=== PATIENT | male | born 1960 | race Caucasian/White ===

== ENCOUNTER 2017-11-05 08:44 | Emergency (ER) | payer OTHER ==
[~2017-11-05] VITALS: Ht 175.3 cm; Wt 67.0 kg
[~2017-11-05 08:44] MED LIST: METH750T2 PO
[2017-11-05 08:45] VITALS: BP 161/72; PULSE 104; RESP 16; TEMP 98.7; O2SAT 100
[2017-11-05] MEDS ORDERED: PENI500T PO (09:22)
--- NOTE | 2017-11-05 09:25 | PD ---
HPI Chief Complaint: Oral / Dental Pain or Problem Time Seen by Provider: 09:09 Travel History International Travel<30 days: No Contact w/Intl Traveler<30days: No Traveled to known affect area: No History of Present Illness HPI 57-year-old male presents for evaluation of dental pain. Symptoms started yesterday morning. Pain is throbbing, constant, localized to the left maxillary first molar, only partially relieved with ibuprofen. Denies fevers, chills. He has no other complaints. [facility] Social History Alcohol Use: Yes Tobacco Use: Yes Substance Use: No Allergies-Medications (Allergen,Severity, Reaction): Coded Allergies: No Known Allergies (Unverified Adverse Reaction, Unknown, 11/05/17) Reported Meds & Prescriptions Reported Meds & Active Scripts Active Penicillin V Potassium 500 Mg Tab 500 Mg PO Q8H 10 Days Methocarbamol 750 Mg Tab 750 Mg PO QID Review of Systems General / Constitutional: No: Fever, Chills HENT: Positive: Dental Difficulties Physical Exam Narrative GENERAL: Well-developed well-nourished male in no acute distress SKIN: Warm and dry. HEAD: Atraumatic. Normocephalic. EYES: Pupils equal and round. No scleral icterus. No injection or drainage. ENT: No nasal bleeding or discharge. Mucous membranes pink and moist. Left maxillary first and second molars are quite decayed with tenderness to palpation of the left maxillary first molar. The surrounding gumline is mildly erythematous. There is no facial edema, no sublingual edema, no trismus. NECK: Trachea midline. No JVD. No lymphadenopathy or submandibular edema. CARDIOVASCULAR: Regular rate and rhythm. No murmur appreciated. RESPIRATORY: No accessory muscle use. Clear to auscultation. Breath sounds equal bilaterally. Data Data Last Documented VS Vital Signs Date Time Temp Pulse Resp B/P (MAP) Pulse Ox O2 Delivery O2 Flow Rate FiO2 11/05/17 08:45 98.7 104 16 161/72 (101) 100 Orders Orders Ed Discharge Order (11/05/17 09:22) [facility] Medical Decision Making Medical Screen Exam Complete: Yes Emergency Medical Condition: Yes Medical Record Reviewed: Yes Differential Diagnosis Dental caries, pulpitis, pericoronitis, periodontal abscess Narrative Course 57-year-old male here with 2 days of dental pain. Examination reveals severe dental caries particularly in the left maxillary molars of the location of the patient's pain. He will be discharged with a short course of penicillin. Recommended outpatient follow-up with a dentist for definitive treatment. Diagnosis Primary Impression: Dental caries Additional Instructions: Medication as prescribed. Follow up with a dentist for definitive therapy. Return for any emergent medical conditions. Med/Other Pt SpecificInfo: Prescription(s) given Scripts Penicillin V Potassium (Penicillin V Potassium) 500 Mg Tab 500 MG PO Q8H for Infection for 10 Days, #30 TAB 0 Refills Prov: Kat Sotelo MD 11/05/17 Disposition: 01 DISCHARGE HOME Condition: Stable Lee Mena Nov 05, 2017 09:25
== END 2017-11-05 09:39 | disposition home or self-care (01) ==
LOC: NEPD 08:44
DX: K02.9 Dental caries, unspecified (principal); Z72.0 Tobacco use
CPT/HCPCS: 99283